=== PATIENT | male | born 1995 | race Caucasian/White ===

== ENCOUNTER 2016-04-29 18:03 | Emergency (ER) | payer MEDICAID ==
[~2016-04-29] VITALS: Ht 177.8 cm; Wt 61.2 kg
--- NOTE | 2016-04-29 18:05 | NUR ---
Patient to ER bed 8 to gown for evaluation. Side rails up. Report given to Mavis HANKS.
--- NOTE | 2016-04-29 18:08 | NUR ---
Patient to ER C/O right hand pain after punching a wall about 2 pm today. Swelling to posterior right hand with SQ hematoma, limited mobility rigth hand 3rd, 4th & 5th fingers including hand 9/10 pain. AAOx4, unlabored breathing, no other signs of trauma, no signs of acute distress.
--- NOTE | 2016-04-29 18:09 | NUR ---
ER MD Richardson at bedside evaluating the patient
[2016-04-29 18:10] VITALS: BP 108/67; PULSE 92; RESP 16; TEMP 98.1; O2SAT 97
[2016-04-29] MEDS ORDERED: ACETAMINOPHEN 325 MG TABLET PO ONE (18:15)
--- NOTE | 2016-04-29 18:29 | NUR ---
Radiology at bedside with portable xray
--- NOTE | 2016-04-29 18:42 | NUR ---
ER MD Richardson at bedside performing right hand reduction. No sedation. Patient tolerated well.
--- NOTE | 2016-04-29 18:56 | NUR ---
Radiology at bedside with portable for post-reduction xray
[2016-04-29] MEDS ORDERED: HYDROcodone/ACETAMIN 5-325 MG TAB (NORCO/ VICODIN) PO ONE (19:15)
--- NOTE | 2016-04-29 19:32 | NUR ---
ER MD Richardson at bedside discussing plan of care with patient and the need to see ortho Sx. Copies of hand Xray provided.
[2016-04-29 19:49] VITALS: BP 113/70; PULSE 77; RESP 17; TEMP 98; O2SAT 99
--- NOTE | 2016-04-29 19:49 | NUR ---
Patient given written and verbal discharge instructions and verbalizes understanding. ER MD Richardson discussed with patient the results and treatment provided. Given copies of tests performed in ER. Patient in stable condition. ID arm band removed. IV catheter removed intact and dressing applied, no active bleeding. Rx of motrin & norco given. Patient educated on pain management and to follow up with PMD. Pain Scale 0/10. Opportunity for questions provided and answered.
== END 2016-04-29 19:49 | disposition home or self-care (01) ==
LOC: SED 18:03
DX: S62.304A Unspecified fracture of fourth metacarpal bone, right hand, initial encounter for closed fracture (principal); W22.8XXA Striking against or struck by other objects, initial encounter; Y93.89 Activity, other specified; Y92.89 Other specified places as the place of occurrence of the external cause; Y99.8 Other external cause status
CPT/HCPCS: 99284

== ENCOUNTER 2019-07-13 12:53 | Emergency (ER) | payer SELFPAY ==
[~2019-07-13] VITALS: Ht 177.8 cm; Wt 68.0 kg
[2019-07-13 13:00] VITALS: BP_SYST 138
--- NOTE | 2019-07-13 13:00 | NUR ---
DR HUTSON IN TO ASSESS
[2019-07-13] MEDS ORDERED: NACL 0.9% 1,000 ML IV ONE (13:02)
--- NOTE | 2019-07-13 13:35 | NUR ---
ALERT, CALM, RESP UNLABORED, SKIN WARM AND DRY. COMMUNICATES CLEARLY IN FULL COMPLETE SENTENCES. DENIES SOB. C/O CP/ABD PAIN SINCE AM GRADUAL ONSET NON-RADIATING. DENIES N,V,D.
[2019-07-13 13:44] LABS: BASOPHILS # (AUTO) 0.1 K/uL (0.0-0.2); BASOPHILS % (AUTO) 0.8 % (0.0-2.0); EOSINOPHILS # (AUTO) 0.4 K/uL (0.0-0.4); EOSINOPHILS % (AUTO) 4.6 % (0.0-4.0); HEMATOCRIT 44.3 % (36-54); HEMOGLOBIN 15.4 g/dL (14.0-18.0); LYMPHOCYTES % (AUTO) 23.4 % (20.5-51.5); MEAN CORPUSCULAR HEMOGLOBIN 31 pg (27-31); MEAN CORPUSCULAR HGB CONC 35 % (32-36); MEAN CORPUSCULAR VOLUME 89 fL (79.0-98.0); MONOCYTES % (AUTO) 11.9 % (1.7-9.3); NEUTROPHILS # (AUTO) 5.1 K/uL (1.8-7.7); NEUTROPHILS % (AUTO) 59.3 % (40.0-70.0); PLATELET COUNT (AUTO) 209 K/uL (130-430); RED BLOOD CELL COUNT(AUTO) 4.99 MIL/uL (4.2-6.2); RED CELL DISTRIBUTION WIDTH 12.9 % (9.0-15.0); WHITE BLOOD COUNT (AUTO) 8.5 K/uL (4.8-10.8)
[2019-07-13 13:54] LABS: BILIRUBIN,URINE NEGATIVE (NEGATIVE); BLOOD, URINE NEGATIVE (NEGATIVE); CLARITY/URINE CLEAR (CLEAR); COLOR,URINE YELLOW (YELLOW); GLUCOSE,URINE NEGATIVE (NEGATIVE); KETONES,URINE NEGATIVE (NEGATIVE); LEUKOCYTE ESTERASE ,URINE NEGATIVE (NEGATIVE); NITRITE, URINE NEGATIVE (NEGATIVE); PROTEIN URINE NEGATIVE (NEGATIVE)
[2019-07-13 14:17] LABS: BARBITURATE, URINE NEGATIVE (NEG <=200); BENZODIAZEPINE, URINE NEGATIVE (NEG <=150); CANNABINOID, URINE NEGATIVE (NEG <=50); COCAINE, URINE POSITIVE (NEG <=150); METHAMPHETAMINES SCREEN,URINE POSITIVE (NEG <=500); OPIATE, URINE NEGATIVE (NEG <=100); PHENCYCLIDINE SCREEN,URINE NEGATIVE (NEG <=25); UR TRICYCLIC ANTIDEPRESSANTS NEGATIVE (NEG <=300); URINE AMPHETAMINE POSITIVE (NEG <=500); URINE METHADONE NEGATIVE (NEG <=200); URINE OXYCODONE SCREEN NEGATIVE (NEG <=100); URINE PROPOXYPHENE SCREEN NEGATIVE (NEG <=300)
[2019-07-13 14:20] LABS: CALCIUM 8.8 mg/dL (8.4-11.0); CREATININE 1.25 mg/dL (0.55-1.30); POTASSIUM 3.6 mmol/L (3.5-5.1)
[2019-07-13 14:24] LABS: ALBUMIN 4.3 g/dL (3.4-4.8); TOTAL BILIRUBIN 0.4 mg/dL (0.0-1.0)
--- NOTE | 2019-07-13 14:42 | NUR ---
PT CONTINUES TO REPORT NOT FEELING WELL DUE TO ECSTASY USE LAST NIGHT NO DISTRESS, RESP UNLABORED, COMMUNICATES CLEARLY
--- NOTE | 2019-07-13 14:46 | NUR ---
URINE DRUG SCREEN POSITIVE FOR DRUG USE
--- NOTE | 2019-07-13 15:25 | NUR ---
DR HUTSON AT BEDSIDE
[2019-07-13 15:53] VITALS: BP_SYST 138
--- NOTE | 2019-07-13 15:54 | NUR ---
REASSESSMENT BY ERMD; PREPARATIONS TO DISCHARGE; PATIENT STATES HIS SYMPTOMS HAVE RESOLVED; MILD NAUSEA REMAINS
--- NOTE | 2019-07-13 15:55 | NUR ---
Patient given written and verbal discharge instructions and verbalizes understanding. ER MD discussed with patient the results and treatment provided. Patient in stable condition. ID arm band removed. IV catheter removed intact and dressing applied, no active bleeding. Rx of ATIVAN given. Patient educated on pain management and to follow up with PMD. Pain Scale . Opportunity for questions provided and answered. Medication side effect fact sheet provided.
== END 2019-07-13 15:53 | disposition home or self-care (01) ==
LOC: SED 12:53
DX: F41.9 Anxiety disorder, unspecified (principal); F15.10 Other stimulant abuse, uncomplicated; F14.10 Cocaine abuse, uncomplicated; F19.10 Other psychoactive substance abuse, uncomplicated; Z87.891 Personal history of nicotine dependence
CPT/HCPCS: 36415; 80053; 80307; 81003; 82150; 82550; 83690; 84484; 85025; 93005; 99284; J7030

== ENCOUNTER 2020-01-29 13:56 | Emergency (ER) | payer MEDICAID ==
[~2020-01-29] VITALS: Ht 180.3 cm; Wt 77.1 kg
[2020-01-29 14:00] VITALS: BP_SYST 128
--- NOTE | 2020-01-29 14:50 | NUR ---
Patient to ER bed 1 to gown for evaluation. Side rails up. Report given to KATHIA.
--- NOTE | 2020-01-29 14:54 | NUR ---
JAEL SPENCER at bedside examining patient.
[2020-01-29] MEDS ORDERED: DIPH-TET-PERTUS Vaccine 0.5 ML VIAL (ADACEL) I.M. ONE (15:00)
--- NOTE | 2020-01-29 16:00 | NUR ---
Patient has a 2 cm laceration to TOP OF RIGHT FOOT. Dr. SPENCERapplied sutures using sterile technique. Edges well approximated. STERILE Dressing applied to site. No bleeding noted. Pt tolerated well.
--- NOTE | 2020-01-29 16:30 | NUR ---
Patient given written and verbal discharge instructions and verbalizes understanding. DR. JOHANNA ELDER MD discussed with patient the results and treatment provided. Patient in stable condition. ID arm band removed. Patient educated on pain management and to follow up with PMD. Pain Scale 0/10. Opportunity for questions provided and answered.
[2020-01-29 16:37] VITALS: BP_SYST 150
== END 2020-01-29 16:30 | disposition home or self-care (01) ==
LOC: SED 13:56
DX: S91.311A Laceration without foreign body, right foot, initial encounter (principal); W26.8XXA Contact with other sharp object(s), not elsewhere classified, initial encounter; Y93.89 Activity, other specified; Y92.89 Other specified places as the place of occurrence of the external cause; Y99.8 Other external cause status
CPT/HCPCS: 90715; 99283

== ENCOUNTER 2020-10-06 01:59 | Emergency (ER) | payer MEDICAID ==
[~2020-10-06] VITALS: Ht 180.3 cm; Wt 74.8 kg
[2020-10-06 02:05] VITALS: BP_SYST 129
[2020-10-06] MEDS ORDERED: ACET-2634 PO (03:28)
[2020-10-06] MEDS ORDERED: IBUP-1969 PO (03:28)
[2020-10-06] MEDS: IBUPROFEN 600 MG TABLET PO ONE (03:47)
[2020-10-06] MEDS ORDERED: IBUPROFEN 600 MG TABLET ONE (03:48)
[2020-10-06 04:15] VITALS: BP_SYST 129
== END 2020-10-06 04:15 | disposition home or self-care (01) ==
LOC: EEVIPCON 01:59 → SED 01:59
DX: S42.002A Fracture of unspecified part of left clavicle, initial encounter for closed fracture (principal); S00.03XA Contusion of scalp, initial encounter; F10.129 Alcohol abuse with intoxication, unspecified; Z79.899 Other long term (current) drug therapy; Y90.9 Presence of alcohol in blood, level not specified; V18.4XXA Pedal cycle driver injured in noncollision transport accident in traffic accident, initial encounter; Y93.89 Activity, other specified; Y92.89 Other specified places as the place of occurrence of the external cause; Y99.8 Other external cause status
CPT/HCPCS: 70450-TC; 76376; 99284

== ENCOUNTER 2021-10-24 15:14 | Emergency (ER) | payer MEDICAID ==
[~2021-10-24] VITALS: Ht 177.8 cm; Wt 79.4 kg
[~2021-10-24 15:14] MED LIST: ACET-2634 PO; IBUP-1969 PO
[2021-10-24 15:15] VITALS: BP_SYST 126
--- NOTE | 2021-10-24 15:15 | NUR ---
BROUGHT BACK TO BED #4 AND TRIAGED, REPORT GIVEN TO LOBO
--- NOTE | 2021-10-24 15:20 | NUR ---
RECEIVED PT FROM LATONYA KOROMA. PT STATES HE FELL OFF A SCOOTER AND INJURED LEFT COLLAR BONE AND LEFT SHOULDER, AND HEAD. THE PAIN HAS INCREASED TODAY. RESP E/U. DENIES N/V/D/C. PT STATES HE HAS A H/A AND LEFT SHOULDER PAIN 10/06. NO OTHER DISTRESS NOTED. VSS. SIDERAILS UP X2. FAMILY AT BEDSIDE.
--- NOTE | 2021-10-24 16:01 | NUR ---
DR. JHA AT BEDSIDE TO ASSESS PT. XRAY SHOULDER COMPLETED.
[2021-10-24] MEDS ORDERED: IBUP-1971 PO (16:29)
[2021-10-24 16:55] VITALS: BP_SYST 125
--- NOTE | 2021-10-24 16:55 | NUR ---
Patient given written and verbal discharge instructions and verbalizes understanding. ER MD discussed with patient the results and treatment provided. Patient in stable condition. ID arm band removed. Rx of MOTRIN given. Patient educated on pain management and to follow up with PMD. Pain Scale 2. Opportunity for questions provided and answered. Medication side effect fact sheet provided.
[2021-10-24] MEDS ORDERED: IBUPROFEN 800 MG TABLET ONE (16:59)
[2021-10-24] MEDS ORDERED: IBUPROFEN 800 MG TABLET PO ONE (17:00)
== END 2021-10-24 16:55 | disposition home or self-care (01) ==
LOC: SED 15:14
DX: S43.402A Unspecified sprain of left shoulder joint, initial encounter (principal); Z79.899 Other long term (current) drug therapy; V00.141A Fall from scooter (nonmotorized), initial encounter; Y93.89 Activity, other specified; Y92.89 Other specified places as the place of occurrence of the external cause; Y99.8 Other external cause status
CPT/HCPCS: 73000-TC; 73030; 99283

== ENCOUNTER 2022-11-03 01:51 | Emergency (ER) | payer MEDICAID ==
[~2022-11-03] VITALS: Ht 175.3 cm; Wt 76.2 kg
[~2022-11-03 01:51] MED LIST changes: +IBUP-1971 PO
[2022-11-03 01:58] VITALS: BP_SYST 147; PULSE 97; RESP 20; TEMP 98.5; O2SAT 98
[2022-11-03] MEDS ORDERED: NACL 0.9% 1,000 ML IV ONE (02:45)
[2022-11-03 02:56] LABS: BASOPHILS % (AUTO) 0.6 % (0.0-2.0); EOSINOPHILS # (AUTO) 0.2 K/uL (0.0-0.4); EOSINOPHILS % (AUTO) 3.3 % (0.0-4.0); HEMATOCRIT 45.5 % (36-54); HEMOGLOBIN 15.5 g/dL (14.0-18.0); LYMPHOCYTES # (AUTO) 2.5 K/uL (1.0-5.5); LYMPHOCYTES % (AUTO) 38.8 % (20.5-51.5); MEAN CORPUSCULAR HEMOGLOBIN 31 pg (27-31); MEAN CORPUSCULAR HGB CONC 34 % (32-36); MEAN CORPUSCULAR VOLUME 90 fL (79.0-98.0); MONOCYTES # (AUTO) 1.3 K/uL (0.0-1.0); MONOCYTES % (AUTO) 21.2 % (1.7-9.3); NEUTROPHILS # (AUTO) 2.3 K/uL (1.8-7.7); NEUTROPHILS % (AUTO) 36.1 % (40.0-70.0); PLATELET COUNT (AUTO) 199 K/uL (130-430); RED BLOOD CELL COUNT(AUTO) 5.04 MIL/uL (4.2-6.2); RED CELL DISTRIBUTION WIDTH 12.6 % (9.0-15.0); WHITE BLOOD COUNT (AUTO) 6.4 K/uL (4.8-10.8)
[2022-11-03] MEDS ORDERED: LORazepam 1 MG TABLET PO ONE (03:00)
[2022-11-03 03:08] LABS: CALCIUM 9.1 mg/dL (8.4-11.0); CREATININE 1.1 mg/dL (0.55-1.30); POTASSIUM 4.2 mmol/L (3.5-5.1)
[2022-11-03 03:13] LABS: ALBUMIN 4.3 g/dL (3.4-4.8); TOTAL BILIRUBIN 0.4 mg/dL (0.0-1.0); TOTAL PROTEIN, SERUM 8.6 g/dL (6.4-8.3)
[2022-11-03] MEDS ORDERED: LORA-259 PO (03:51)
[2022-11-03] MEDS ORDERED: AZIT-93 PO (03:51)
[2022-11-03 04:00] VITALS: BP_SYST 152; PULSE 95; RESP 22; O2SAT 98
[2022-11-03 04:00] LABS: BARBITURATE, URINE NEGATIVE (NEG <=200)
[2022-11-03 04:01] LABS: BENZODIAZEPINE, URINE NEGATIVE (NEG <=150); CANNABINOID, URINE POSITIVE (NEG <=50); COCAINE, URINE POSITIVE (NEG <=150); METHAMPHETAMINES SCREEN,URINE POSITIVE (NEG <=500); OPIATE, URINE NEGATIVE (NEG <=100); PHENCYCLIDINE SCREEN,URINE NEGATIVE (NEG <=25); URINE AMPHETAMINE POSITIVE (NEG <=500); URINE METHADONE NEGATIVE (NEG <=200); URINE OXYCODONE SCREEN NEGATIVE (NEG <=100)
[2022-11-03 04:02] LABS: UR TRICYCLIC ANTIDEPRESSANTS NEGATIVE (NEG <=300); URINE PROPOXYPHENE SCREEN NEGATIVE (NEG <=300)
== END 2022-11-03 04:00 | disposition home or self-care (01) ==
LOC: SED 01:51
DX: F41.9 Anxiety disorder, unspecified (principal); F19.10 Other psychoactive substance abuse, uncomplicated; R05.9 Cough, unspecified; R07.9 Chest pain, unspecified; R06.02 Shortness of breath; F17.200 Nicotine dependence, unspecified, uncomplicated; Z79.899 Other long term (current) drug therapy
CPT/HCPCS: 36415; 71045; 80053; 80307; 85025; 93005; 99285

== ENCOUNTER 2023-01-29 12:02 | Emergency (ER) | payer MEDICAID ==
[~2023-01-29] VITALS: Ht 175.3 cm; Wt 79.4 kg
[2023-01-29 12:02] VITALS: BP_SYST 147; PULSE 117; RESP 19; TEMP 98.5; O2SAT 95
[~2023-01-29 12:02] MED LIST changes: +AZIT-93 PO; +LORA-259 PO; +MYCOLOG15 TP; +PRED20TA PO
== END 2023-01-29 12:11 ==
LOC: SED 12:02
DX: M25.532 Pain in left wrist (principal); Z79.899 Other long term (current) drug therapy
CPT/HCPCS: 99283